=== PATIENT | female | born 1985 | race Caucasian/White ===

== ENCOUNTER 2017-10-07 20:00 | Emergency (ER) | payer BC ==
[2017-10-07 21:14] LABS: APPEARANCE,URINE CLEAR; BILIRUBIN,URINE NEGATIVE (NEGATIVE); COLOR,URINE YELLOW; GLUCOSE, URINE NEGATIVE (NEGATIVE); KETONES,URINE NEGATIVE (NEGATIVE); LEUKOCYTE ESTERASE,URINE NEGATIVE (NEGATIVE); NITRITE,URINE NEGATIVE (NEGATIVE); PROTEIN,URINE NEGATIVE (NEGATIVE); UROBILINOGEN,URINE NEGATIVE mg/dL (<2.0)
[2017-10-07] MEDS ORDERED: DIAZEPAM INJ 10 MG/2 ML DISP.SYRIN IM ONE (22:22)
--- NOTE | 2017-10-07 22:27 | ER Document Report ---
ED General - General Chief Complaint: Urinary Problem Stated Complaint: BACK PAIN Time Seen by Provider: 10/07/17 22:12 Notes: Patient is a 31-year-old female comes emergency department for chief complaint of flank pain on both sides, she states that earlier today she tried to urinate and could not, she has urinated since. She denies dysuria, abdominal pain, nausea or vomiting, fever or chills. She denies injury to her back. She states she thinks she has a urinary tract infection. She states that symptoms of pain started 2-3 days ago, symptoms started just after she recovered from a gastroenteritis where she had vomiting and diarrhea. She has had a tubal ligation, appendectomy, cholecystectomy, has hypertension and GERD. TRAVEL OUTSIDE OF THE [place] IN LAST 30 DAYS: No - Related Data Allergies/Adverse Reactions: No Known Allergies Allergy (Verified 01/29/16 12:01) Past Medical History - General Information source: Patient - Social History Smoking Status: Never Smoker Chew tobacco use (# tins/day): No Frequency of alcohol use: None Drug Abuse: None Lives with: Family Family History: Reviewed & Not Pertinent, Malignancy Patient has suicidal ideation: No Patient has homicidal ideation: No - Past Medical History Cardiac Medical History: Reports: Hx Hypertension Denies: Hx Coronary Artery Disease, Hx Heart Attack Pulmonary Medical History: Reports: Hx Asthma Denies: Hx Bronchitis, Hx COPD, Hx Pneumonia Neurological Medical History: Denies: Hx Cerebrovascular Accident, Hx Seizures Renal/ Medical History: Denies: Hx Peritoneal Dialysis GI Medical History: Reports: Hx Gastroesophageal Reflux Disease Musculoskeltal Medical History: Denies Hx Arthritis Past Surgical History: Reports: Hx Appendectomy, Hx Cholecystectomy, Hx Oral Surgery, Hx Tubal Ligation. Denies: Hx Hysterectomy - Immunizations Immunizations up to date: No Hx Diphtheria, Pertussis, Tetanus Vaccination: Yes Review of Systems - Review of Systems Constitutional: No symptoms reported EENT: No symptoms reported Cardiovascular: No symptoms reported Respiratory: No symptoms reported Gastrointestinal: No symptoms reported Genitourinary: See HPI Female Genitourinary: No symptoms reported Musculoskeletal: See HPI Skin: No symptoms reported Hematologic/Lymphatic: No symptoms reported Neurological/Psychological: No symptoms reported Physical Exam - Vital signs Vitals: Temp Pulse Resp BP Pulse Ox 98.2 F 96 16 140/93 H 98 10/07/17 20:23 10/07/17 20:23 10/07/17 20:23 10/07/17 20:23 10/07/17 20:23 Interpretation: Normal - General General appearance: Appears well In distress: None - Patient occasionally shifting her position on the bed, however she does not appear to be in any distress - HEENT Head: Normocephalic, Atraumatic Eyes: Normal Pupils: PERRL - Respiratory Respiratory status: No respiratory distress Chest status: Nontender Breath sounds: Normal. No: Decreased air movement, Wheezing Chest palpation: Normal - Cardiovascular Rhythm: Regular. No: Tachycardia Heart sounds: Normal auscultation, S1 appreciated, S2 appreciated Murmur: No - Abdominal Inspection: Normal Distension: No distension Bowel sounds: Normal Tenderness: Nontender. No: Tender, McBurney's point, Thao's sign, Guarding Organomegaly: No organomegaly - Back Back: Tender - Patient tender along the mid to lowerbilateral paralumbar musculature, worse on the right with rigid muscle tightness. No midline tenderness, no saddle anesthesia, moves all extremities and full range of motion , negative straight leg raise, normal distal neurovascular exam bilaterally. - Extremities General upper extremity: Normal inspection, Nontender, Normal color, Normal ROM , Normal temperature General lower extremity: Normal inspection, Nontender, Normal color, Normal ROM , Normal temperature, Normal weight bearing. No: Kavitha's sign - Neurological Neuro grossly intact: Yes Cognition: Normal Orientation: AAOx4 Ashwin Coma Scale Eye Opening: Spontaneous Ashwin Coma Scale Verbal: Oriented [place] Coma Scale Motor: Obeys Commands Ashwin Coma Scale Total: 15 Speech: Normal Motor strength normal: LUE, RUE, LLE, RLE Sensory: Normal - Psychological Associated symptoms: Normal affect, Normal mood - Skin Skin Temperature: Warm Skin Moisture: Dry Skin Color: Normal Course - Re-evaluation Re-evalutation: Urine is clean, test negative, patient denies history of IV drug abuse , no fever, no concerning abnormalities on exam, no reported neurological deficits. She states she had trouble urinating earlier but provided a urine sample without any difficulty. Very low suspicion of spinal cord compression, epidural abscess, or other emergent back abnormality. Palpable muscle pain with spasm on exam. Medicated, discussed medications, follow-up, return precautions with patient and stepmother. They state understanding and agreement. - Vital Signs Vital signs: Temp Pulse Resp BP Pulse Ox 98.1 F 82 18 122/76 100 10/07/17 23:20 10/07/17 23:20 10/07/17 23:20 10/07/17 23:20 10/07/17 23:20 Discharge - Discharge Clinical Impression: Lower back pain Qualifiers: Chronicity: acute Back pain laterality: bilateral Sciatica presence: without sciatica Qualified Code(s): M54.5 - Low back pain Condition: Stable Disposition: HOME, SELF-CARE Additional Instructions: Your urinalysis shows mild dehydration, no infection, negative , no other concerning abnormalities. Your examination and symptoms are consistent with muscle strain and spasm of your lumbar paraspinal muscles. You have begun treatment tonight, continue treatment at home with muscle relaxer and naproxen, apply heat to the area, avoid lifting and twisting, perform gentle stretches. Follow-up with primary care. Return if you worsen including vomiting, fever, abdominal pain, numbness , incontinence, or any other concerning or worsening symptoms. Prescriptions: Methocarbamol [Robaxin 750 mg Tablet] 750 mg PO Q6 #20 tablet Naproxen [Naprosyn 375 Mg Tablet] 375 mg PO BID PRN #20 tablet PRN Reason: Referrals: ARI CASEY FNP-C [Primary Care Provider] - Follow up as needed
[2017-10-07 23:21] VITALS: BP 122/76
== END 2017-10-07 23:20 | disposition home or self-care (01) ==
LOC: ER 20:00
DX: M54.5 Low back pain (principal); I10 Essential (primary) hypertension; J45.909 Unspecified asthma, uncomplicated; Z90.49 Acquired absence of other specified parts of digestive tract; Z87.19 Personal history of other diseases of the digestive system; Z98.51 Tubal ligation status
CPT/HCPCS: 99283; 96372; 81025; 81001; J3360

== ENCOUNTER 2018-07-30 07:13 | Emergency (ER) | payer BC ==
[2018-07-30 08:45] LABS: APPEARANCE,URINE SLIGHTLY-CLOUDY; BILIRUBIN,URINE NEGATIVE (NEGATIVE); COLOR,URINE YELLOW; GLUCOSE, URINE NEGATIVE (NEGATIVE); KETONES,URINE NEGATIVE (NEGATIVE); LEUKOCYTE ESTERASE,URINE NEGATIVE (NEGATIVE); NITRITE,URINE NEGATIVE (NEGATIVE); PROTEIN,URINE NEGATIVE (NEGATIVE); URINE SPECIFIC GRAVITY 1.023; UROBILINOGEN,URINE NEGATIVE mg/dL (<2.0)
--- NOTE | 2018-07-30 09:34 | ER Document Report ---
ED Medical Screen (RME) - General Chief Complaint: Urinary Problem Stated Complaint: URINARY ISSUES Time Seen by Provider: 07/30/18 09:27 Primary Care Provider: ARI CASEY FNP-C [Primary Care Provider] - Follow up as needed Notes: 32-year-old female patient reports 3-day history of generalized weakness, low back pain, and difficulty urinating. She states when she tries to urinate only small amounts of urine will come out. There is no fever. LMP was 07/14/2018, and she has had her tubes tied. Lab work, and LASHELL straight cath for residual volume will be done. I have greeted and performed a rapid initial assessment of this patient. A comprehensive ED assessment and evaluation of the patient, analysis of test results and completion of the medical decision making process will be conducted by additional ED providers. TRAVEL OUTSIDE OF THE [place] IN LAST 30 DAYS: No - Related Data Allergies/Adverse Reactions: No Known Allergies Allergy (Verified 01/29/16 12:01) Past Medical History - General Last Menstrual Period: 07-14-18 - Past Medical History Cardiac Medical History: Reports: Hx Hypertension Denies: Hx Coronary Artery Disease, Hx Heart Attack Pulmonary Medical History: Reports: Hx Asthma Denies: Hx Bronchitis, Hx COPD, Hx Pneumonia Neurological Medical History: Denies: Hx Cerebrovascular Accident, Hx Seizures Renal/ Medical History: Denies: Hx Peritoneal Dialysis GI Medical History: Reports: Hx Gastroesophageal Reflux Disease Musculoskeltal Medical History: Denies Hx Arthritis Past Surgical History: Reports: Hx Appendectomy, Hx Cholecystectomy, Hx Oral Surgery, Hx Tubal Ligation. Denies: Hx Hysterectomy - Immunizations Immunizations up to date: No Hx Diphtheria, Pertussis, Tetanus Vaccination: Yes Physical Exam - Vital signs Vitals: Temp Pulse Resp BP Pulse Ox 98.2 F 85 16 133/85 H 98 07/30/18 07:23 07/30/18 07:23 07/30/18 07:23 07/30/18 07:23 07/30/18 07:23 Course - Vital Signs Vital signs: Temp Pulse Resp BP Pulse Ox 98.2 F 85 16 133/85 H 98 07/30/18 07:23 07/30/18 07:23 07/30/18 07:23 07/30/18 07:23 07/30/18 07:23 Doctor's Discharge - Discharge Referrals: ARI CASEY, [employer] [facility] [Primary Care Provider] - Follow up as needed
[2018-07-30 10:14] LABS: ABSOLUTE MONOCYTES (AUTO) 0.4 10^3/uL (0.1-1.4); ABSOLUTE NEUT (AUTO) 4.7 10^3/uL (1.7-8.2); BASOPHILS % (AUTO) 0.7 % (0-2); EOSINOPHILS % (AUTO) 0.2 % (0-6); HEMATOCRIT 37.9 % (36.0-47.0); HEMOGLOBIN 13.2 g/dL (12.0-15.5); LYMPHOCYTES % (AUTO) 28.3 % (13-45); MEAN CORPUSCULAR HEMOGLOBIN 29.2 pg (27.0-33.4); MEAN CORPUSCULAR HGB CONC 34.8 g/dL (32.0-36.0); MEAN CORPUSCULAR VOLUME 84 fl (80-97); MONOCYTES % (AUTO) 5.3 % (3-13); PLATELET COUNT 359 10^3/uL (150-450); RED BLOOD COUNT 4.52 10^6/uL (3.72-5.28); RED CELL DISTRIBUTION WIDTH 13.2 % (11.5-14.0); SEGMENTED NEUTROPHILS % (AUTO) 65.5 % (42-78); TOTAL CELLS COUNTED % (AUTO) 100 %; WHITE BLOOD COUNT 7.2 10^3/uL (4.0-10.5)
[2018-07-30 10:24] LABS: ALANINE AMINOTRANSFERASE 22 U/L (9-52); ALBUMIN 4.8 g/dL (3.5-5.0); ALKALINE PHOSPHATASE 78 U/L (38-126); ANION GAP 10 (5-19); ASPARTATE AMINO TRANSFERASE 15 U/L (14-36); BILIRUBIN,DIRECT 0.2 mg/dL (0.0-0.4); BILIRUBIN,TOTAL 0.5 mg/dL (0.2-1.3); BLOOD UREA NITROGEN 7 mg/dL (7-20); CALCIUM 9.9 mg/dL (8.4-10.2); CARBON DIOXIDE 27 mmol/L (22-30); CHLORIDE 103 mmol/L (98-107); GLUCOSE 98 mg/dL (75-110); POTASSIUM 4.6 mmol/L (3.6-5.0); SODIUM 139.8 mmol/L (137-145); TOTAL PROTEIN 7.9 g/dL (6.3-8.2)
[2018-07-30] MEDS ORDERED: DICYCLOMINE HCL 20 MG TABLET PO ONE (10:41)
[2018-07-30] MEDS ORDERED: LIDOCAINE 5% (700 MG) TRANSDERMAL ADH..PATCH TP ONE (10:45)
--- NOTE | 2018-07-30 10:45 | ER Document Report ---
ED General - General Chief Complaint: Urinary Problem Stated Complaint: URINARY ISSUES Time Seen by Provider: 07/30/18 09:27 Primary Care Provider: ARI CASEY FNP-C [Primary Care Provider] - Follow up as needed TRAVEL OUTSIDE OF THE [place] IN LAST 30 DAYS: No - HPI Patient complains to provider of: Patient coming in for evaluation Notes: Patient coming in for back pain urinary issues was seen by the doctor in triage notes provided below 32-year-old female patient reports 3-day history of generalized weakness, low back pain, and difficulty urinating. She states when she tries to urinate only small amounts of urine will come out. There is no fever. LMP was 07/14/2018, and she has had her tubes tied. Lab work, and LASHELL straight cath for residual volume will be done. Patient coming in for evaluation for back pain urinary issues patient states back pain feels like a burning sensation. Patient also states she is having increased diarrhea patient is diarrhea ever since she had her gallbladder removed however possibly an increase in the last few days. Patient states only small volumes coming out whenever she pees. Patient denies any numbness or tingling down her legs denies any difficulty in ambulating. Patient denies any bowel or bladder incontinence. Resting comfortably upon my evaluation. Patient does endorse urinary frequency upon my evaluation - Related Data Allergies/Adverse Reactions: No Known Allergies Allergy (Verified 01/29/16 12:01) Past Medical History - General Last Menstrual Period: 07-14-18 - Social History Smoking Status: Unknown if Ever Smoked Family History: Reviewed & Not Pertinent, Malignancy Patient has suicidal ideation: No Patient has homicidal ideation: No - Past Medical History Cardiac Medical History: Reports: Hx Hypertension Denies: Hx Coronary Artery Disease, Hx Heart Attack Pulmonary Medical History: Reports: Hx Asthma Denies: Hx Bronchitis, Hx COPD, Hx Pneumonia Neurological Medical History: Denies: Hx Cerebrovascular Accident, Hx Seizures Renal/ Medical History: Denies: Hx Peritoneal Dialysis GI Medical History: Reports: Hx Gastroesophageal Reflux Disease Musculoskeletal Medical History: Denies Hx Arthritis Past Surgical History: Reports: Hx Appendectomy, Hx Cholecystectomy, Hx Oral Surgery, Hx Tubal Ligation. Denies: Hx Hysterectomy - Immunizations Immunizations up to date: No Hx Diphtheria, Pertussis, Tetanus Vaccination: Yes Review of Systems - Review of Systems Constitutional: No symptoms reported EENT: No symptoms reported Cardiovascular: No symptoms reported Respiratory: No symptoms reported Gastrointestinal: No symptoms reported Female Genitourinary: No symptoms reported Musculoskeletal: No symptoms reported Skin: No symptoms reported Hematologic/Lymphatic: No symptoms reported Neurological/Psychological: No symptoms reported Physical Exam - Vital signs Vitals: Temp Pulse Resp BP Pulse Ox 98.2 F 85 16 133/85 H 98 07/30/18 07:23 07/30/18 07:23 07/30/18 07:23 07/30/18 07:23 07/30/18 07:23 Interpretation: Normal - General General appearance: Appears well, Alert - HEENT Head: Normocephalic, Atraumatic Eyes: Normal Pupils: PERRL - Respiratory Respiratory status: No respiratory distress Chest status: Nontender Breath sounds: Normal Chest palpation: Normal - Cardiovascular Rhythm: Regular Heart sounds: Normal auscultation Murmur: No - Abdominal Inspection: Normal Distension: No distension Bowel sounds: Normal Tenderness: Nontender Organomegaly: No organomegaly - Back Back: Normal, Nontender - Extremities General upper extremity: Normal inspection, Nontender, Normal color, Normal ROM, Normal temperature General lower extremity: Normal inspection, Nontender, Normal color, Normal ROM, Normal temperature, Normal weight bearing. No: Kavitha's sign - Neurological Neuro grossly intact: Yes Cognition: Normal Orientation: AAOx4 [place] Coma Scale Eye Opening: Spontaneous Ashwin Coma Scale Verbal: Oriented Ashwin Coma Scale Motor: Obeys Commands Ashwin Coma Scale Total: 15 Speech: Normal Motor strength normal: LUE, RUE, LLE, RLE Sensory: Normal - Psychological Associated symptoms: Normal affect, Normal mood - Skin Skin Temperature: Warm Skin Moisture: Dry Skin Color: Normal Course - Re-evaluation Re-evalutation: 07/30/18 15:13 The patient presents with low back pain without signs of spinal cord compression, cauda equina syndrome, infection, aneurysm, or other serious etiology. The patient is neurologically intact. Given the extremely low risk of these diagnoses further testing and evaluation for these possibilities does not appear to be indicated at this time. The patient has been instructed to return if the symptoms worsen or change in any way. Urinalysis will be sent for culture. No signs of an acute infection at this time. Possibility the patient's back pain could be from colonic spasms will trial run of Bentyl. Patient states understanding will be discharged home - Vital Signs Vital signs: Temp Pulse Resp BP Pulse Ox 98.1 F 67 18 128/73 H 100 07/30/18 11:28 07/30/18 11:28 07/30/18 11:28 07/30/18 11:28 07/30/18 11:28 - Laboratory Result Diagrams: 07/30/18 09:35 07/30/18 09:35 Discharge - Discharge Clinical Impression: Back pain Qualifiers: Back pain location: low back pain Chronicity: acute Back pain laterality: bilateral Sciatica presence: without sciatica Qualified Code(s): M54.5 - Low aleksandar k pain Diarrhea Qualifiers: Diarrhea type: unspecified type Qualified Code(s): R19.7 - Diarrhea, unspecified Condition: Good Disposition: HOME, SELF-CARE Instructions: Diarrhea, Nonspecific ([facility]), Low Back Pain ([facility]) Additional Instructions: Your evaluation today does not show any signs of infection that would require antibiotics at this time. Some of the pain that you are having your back may be due to underlying diarrhea. I would recommend Tylenol Motrin for pain control he may try lidocaine patch as provided here in ER sHe may also use Bentyl for crampy pain. Return to the ER symptoms worsen we will send her urine for culture Prescriptions: Dicyclomine HCl [Bentyl 20 mg Tablet] 20 mg PO QID #30 tablet Referrals: ARI CASEY FNP-C [Primary Care Provider] - Follow up as needed
[2018-07-30 11:29] VITALS: BP 128/73
== END 2018-07-30 11:37 | disposition home or self-care (01) ==
LOC: ER 07:13
DX: M54.5 Low back pain (principal); R53.1 Weakness; R35.0 Frequency of micturition; R19.7 Diarrhea, unspecified; R39.89 Other symptoms and signs involving the genitourinary system; I10 Essential (primary) hypertension; J45.909 Unspecified asthma, uncomplicated; Z98.51 Tubal ligation status; Z90.49 Acquired absence of other specified parts of digestive tract
CPT/HCPCS: 99283; 36415; 85025; 80053; 81001; J3490

== ENCOUNTER 2018-12-11 14:37 | Emergency (ER) | payer BC ==
[2018-12-11 15:02] VITALS: BP 141/63
[2018-12-11] MEDS ORDERED: ACETAMINOPHEN 325 MG TABLET PO ONE (15:51)
[2018-12-11] MEDS ORDERED: DIPHENHYDRAMINE HCL 50 MG CAPSULE PO ONE (15:51)
--- NOTE | 2018-12-11 15:55 | ER Document Report ---
HPI - HPI Patient complains to provider of: Insect bites Time Seen by Provider: 12/11/18 15:47 Pain Level: 1 Context: Patient is a 32-year-old female presents to the emergency department with multiple insect bites to her lower extremities. Patient states she saw "little yellow biting flies" yesterday which "cut me up good." Patient states she took Benadryl last evening but has not taken any Benadryl today. Patient denies any use of Tylenol Motrin, denying any topical cream use. Patient states that he is. Patient is denying any respiratory distress, vomiting, diarrhea. Past medical history: Hypertension, seasonal allergies, GERD Medications: Lisinopril, loratadine, omeprazole Allergies: None - REPRODUCTIVE Reproductive: DENIES: : Past Medical History - General Information source: Patient - Social History Smoking Status: Unknown if Ever Smoked Family History: Reviewed & Not Pertinent, Malignancy - Past Medical History Cardiac Medical History: Reports: Hx Hypertension Denies: Hx Coronary Artery Disease, Hx Heart Attack Pulmonary Medical History: Reports: Hx Asthma Denies: Hx Bronchitis, Hx COPD, Hx Pneumonia Neurological Medical History: Denies: Hx Cerebrovascular Accident, Hx Seizures Renal/ Medical History: Denies: Hx Peritoneal Dialysis GI Medical History: Reports: Hx Gastroesophageal Reflux Disease Musculoskeletal Medical History: Denies Hx Arthritis Past Surgical History: Reports: Hx Appendectomy, Hx Cholecystectomy, Hx Oral Surgery, Hx Tubal Ligation. Denies: Hx Hysterectomy - Immunizations Immunizations up to date: No Hx Diphtheria, Pertussis, Tetanus Vaccination: Yes Vertical Provider Document - CONSTITUTIONAL Agree With Documented VS: Yes Notes: GENERAL: Alert, interacts well. No acute distress. HEAD: Normocephalic, atraumatic. EYES: Pupils equal, round, and reactive to light. Extraocular movements intact. ENT: Oral mucosa moist, tongue midline. NECK: Full range of motion. Supple. Trachea midline. LUNGS: Clear to auscultation bilaterally, no wheezes, rales, or rhonchi. No respiratory distress. HEART: Regular rate and rhythm. No murmur ABDOMEN: Soft, non-tender. Non-distended. Bowel sounds present in all 4 quadrants. EXTREMITIES: Moves all 4 extremities spontaneously. No edema, normal radial and dorsalis pedis pulses bilaterally. No cyanosis. BACK: no cervical, thoracic, lumbar midline tenderness. No saddle anesthesia, normal distal neurovascular exam. NEUROLOGICAL: Alert and oriented x3. Normal speech. cranial nerves II through XII grossly intact PSYCH: Normal affect, normal mood. SKIN: Warm, dry, normal turgor. Small erythematous macular papules noted bilateral lower extremities mid calf down to feet, spares the soles. - INFECTION CONTROL TRAVEL OUTSIDE OF THE [place] IN LAST 30 DAYS: No Course - Re-evaluation Re-evalutation: 12/11/18 15:53 Patient's lesions are consistent with some sort of insect bite. They are nonfluctuant, nonindurated, no active discharge. Lesions do not appear infected at this time. They are blanchable. They spare the patient's soles. I discussed use of Benadryl, anti-inflammatories, and Zova-evg-tiidoot hydrocortisone cream with patient at bedside. I have also discussed signs and symptoms of anaphylaxis. Patient stable for discharge. - Vital Signs Vital signs: Temp Pulse Resp BP Pulse Ox 98.2 F 70 18 141/63 H 99 12/11/18 15:00 12/11/18 15:00 12/11/18 15:00 12/11/18 15:00 12/11/18 15:00 Discharge - Discharge Clinical Impression: Insect bites Qualifiers: Encounter type: initial encounter Site of insect bite: foot Laterality: unspecified laterality Qualified Code(s): S90.869A - Insect bite (nonvenomous), unspecified foot, initial encounter; W57.XXXA - Bitten or stung by nonvenomous insect and other nonvenomous arthropods, initial encounter Condition: Stable Disposition: HOME, SELF-CARE Instructions: Insect Bites ([facility]) Additional Instructions: As we discussed you have been seen and treated in the emergency department for potential insight bites to your lower extremities. Please make sure you are taking 50 mg of Benadryl every 6 hours as needed for itching. Please also take [id number] Tylenol or Motrin for generalized pain. You can also buy a hydrocortisone cream for topical application. Please follow-up with your primary care provider return to the emergency room for any concerns. Referrals: ARI CASEY, CRISTIAN [Primary Care Provider] - Follow up as needed
== END 2018-12-11 16:06 | disposition home or self-care (01) ==
LOC: ER 14:37
DX: S90.869A Insect bite (nonvenomous), unspecified foot, initial encounter (principal); W57.XXXA Bitten or stung by nonvenomous insect and other nonvenomous arthropods, initial encounter; I10 Essential (primary) hypertension; K21.9 Gastro-esophageal reflux disease without esophagitis; J45.909 Unspecified asthma, uncomplicated; Z79.899 Other long term (current) drug therapy
CPT/HCPCS: 99281

== ENCOUNTER 2019-06-29 16:59 | Emergency (ER) | payer BC ==
[2019-06-29 19:58] VITALS: BP 135/84
--- NOTE | 2019-06-29 20:02 | ER Document Report ---
HPI - HPI Time Seen by Provider: 06/29/19 19:52 Pain Level: 3 Notes: 33-year-old female patient presented to the emergency department with complaints of pain to her face. Patient reports she had several moles removed today by her medical collections specialist. She states she now has pain to these areas. - CONSTITUTIONAL Constitutional: DENIES: Fever, Chills - REPRODUCTIVE Reproductive: DENIES: : Past Medical History - General Information source: Patient - Social History Smoking Status: Former Smoker Frequency of alcohol use: Rare Drug Abuse: None Family History: Reviewed & Not Pertinent, Malignancy Patient has suicidal ideation: No Patient has homicidal ideation: No - Past Medical History Cardiac Medical History: Reports: Hx Hypertension Denies: Hx Coronary Artery Disease, Hx Heart Attack Pulmonary Medical History: Reports: Hx Asthma Denies: Hx Bronchitis, Hx COPD, Hx Pneumonia Neurological Medical History: Denies: Hx Cerebrovascular Accident, Hx Seizures Renal/ Medical History: Denies: Hx Peritoneal Dialysis GI Medical History: Reports: Hx Gastroesophageal Reflux Disease Musculoskeletal Medical History: Denies Hx Arthritis Past Surgical History: Reports: Hx Appendectomy, Hx Cholecystectomy, Hx Oral Surgery, Hx Tubal Ligation. Denies: Hx Hysterectomy - Immunizations Immunizations up to date: No Hx Diphtheria, Pertussis, Tetanus Vaccination: Yes Vertical Provider Document - CONSTITUTIONAL Notes: PHYSICAL EXAMINATION: GENERAL: Well-appearing, well-nourished and in no acute distress. HEAD: Atraumatic, normocephalic. EYES: Pupils equal round extraocular movements intact, conjunctiva are normal. ENT: Nares patent NECK: Normal range of motion LUNGS: No respiratory distress Musculoskeletal: Normal range of motion NEUROLOGICAL: Normal speech, normal gait. PSYCH: Normal mood, normal affect. SKIN: Slight erythema surrounding areas where moles were removed. No obvious infectious process noted. - INFECTION CONTROL TRAVEL OUTSIDE OF THE [place] IN LAST 30 DAYS: No Course - Re-evaluation Re-evalutation: We will prescribe patient some pain medication and also start her on cephalexin. She was encouraged to follow back up with her medical collections specialist at her earliest convenience. - Vital Signs Vital signs: Temp Pulse Resp BP Pulse Ox 98.7 F 91 17 135/84 H 98 06/29/19 19:57 06/29/19 19:57 06/29/19 19:57 06/29/19 19:57 12/26/19 19:57 Discharge - Discharge Clinical Impression: Skin irritation Condition: Stable Disposition: HOME, SELF-CARE Additional Instructions: Please take medications as prescribed. Call your medical collections specialist in the morning and let them know you had to come to the emergency department for pain medications. Let them know we are also starting you on an antibiotic as a pre caution. Prescriptions: Cephalexin [Cephalexin 500 MG Tablet] 1 tab PO BID #14 tablet Hydrocodone/Acetaminophen [[place] 5-325 mg Tablet] 1 tab PO Q4H #12 tablet Referrals: CRISTI TAPIA PA-C [Primary Care Provider] - Follow up as needed
== END 2019-06-29 20:00 | disposition home or self-care (01) ==
LOC: ER 16:59
DX: L30.9 Dermatitis, unspecified (principal); R51 Headache; I10 Essential (primary) hypertension; Z90.49 Acquired absence of other specified parts of digestive tract; Z98.51 Tubal ligation status
CPT/HCPCS: 99283

== ENCOUNTER 2019-11-27 16:46 | Emergency (ER) | payer BC ==
--- NOTE | 2019-11-27 17:33 | ER Document Report ---
ED General - General Chief Complaint: Shortness Of Breath Stated Complaint: SHORTNESS OF BREATH Time Seen by Provider: 11/27/19 17:14 Primary Care Provider: CRITSI TAPIA PA-C [Primary Care Provider] - Follow up as needed Mode of Arrival: Ambulatory Information source: Patient Notes: 33-year-old female past medical history significant for anxiety, asthma, hypert ension presents to the emergency room complaining of increased anxiety, decreased appetite, abdominal cramping that started 2 days ago. She denies any suicidal or homicidal ideation. States she is drinking plenty of fluids denies nausea, vomiting, no diarrhea. States she just found out that her boyfriend tested positive for COVID 19 on and is currently hospitalized in [place]. Patient states she has not had any physical contact with him in over 2 weeks. She was concerned about the possibilities of developing COVID-19. She denies fevers, she denies shortness of breath, she denies any loss of taste or smell. She denies any recent travel. TRAVEL OUTSIDE OF THE [place] IN LAST 30 DAYS: No - Related Data Allergies/Adverse Reactions: No Known Allergies Allergy (Verified 06/29/19 19:46) Past Medical History - General Information source: Patient - Social History Smoking Status: Current Every Day Smoker Frequency of alcohol use: None Drug Abuse: None Lives with: Family Family History: Reviewed & Not Pertinent, Malignancy Patient has homicidal ideation: No - Past Medical History Cardiac Medical History: Reports: Hx Hypertension Denies: Hx Coronary Artery Disease, Hx Heart Attack Pulmonary Medical History: Reports: Hx Asthma Denies: Hx Bronchitis, Hx COPD, Hx Pneumonia Neurological Medical History: Denies: Hx Cerebrovascular Accident, Hx Seizures Renal/ Medical History: Denies: Hx Peritoneal Dialysis GI Medical History: Reports: Hx Gastroesophageal Reflux Disease Musculoskeletal Medical History: Denies Hx Arthritis Past Surgical History: Reports: Hx Appendectomy, Hx Cholecystectomy, Hx Genitourinary Surgery, Hx Oral Surgery, Hx Tubal Ligation. Denies: Hx Hysterectomy - Immunizations Immunizations up to date: No Hx Diphtheria, Pertussis, Tetanus Vaccination: Yes Review of Systems - Review of Systems Constitutional: No symptoms reported EENT: No symptoms reported Cardiovascular: No symptoms reported Respiratory: No symptoms reported Gastrointestinal: Abdominal pain, Poor appetite. denies: Poor fluid intake Genitourinary: No symptoms reported Musculoskeletal: No symptoms reported Skin: No symptoms reported Neurological/Psychological: Anxiety -: Yes All other systems reviewed and negative Physical Exam - Vital signs Vitals: Temp Pulse Resp BP Pulse Ox 98.4 F 108 H 20 125/82 98 11/27/19 16:47 11/27/19 16:47 11/27/19 16:47 11/27/19 16:47 11/27/19 16:47 - General General appearance: Appears well, Alert In distress: Mild - Respiratory Respiratory status: No respiratory distress Chest status: Nontender Breath sounds: Normal Chest palpation: Normal - Cardiovascular Rhythm: Tachycardia Heart sounds: Normal auscultation Murmur: No - Abdominal Inspection: Normal Distension: No distension Bowel sounds: Normal Tenderness: Nontender. No: Guarding, Rebound Organomegaly: No organomegaly - Back Back: Normal. No: CVA tenderness - Neurological Neuro grossly intact: Yes Cognition: Normal Orientation: AAOx4 [place] Coma Scale Eye Opening: Spontaneous [place] Coma Scale Verbal: Oriented [place] Coma Scale Motor: Obeys Commands [place] Coma Scale Total: 15 Speech: Normal Motor strength normal: LUE, RUE, LLE, RLE Sensory: Normal - Psychological Associated symptoms: Normal affect, Normal mood, Anxious, Decreased appetite, Depressed. No: Auditory hallucinations, Excessive sleeping, Flat affect, Manic, Paranoid - Skin Skin Temperature: Warm Skin Moisture: Dry Skin Color: Normal Course - Re-evaluation Re-evalutation: 11/27/19 18:50 Patient is resting comfortably states she is feeling better feeling less anxi ous. Reviewed lab results with patient. Offered COVID-19 testing. Patient stated she did not want to get tested at this point as her last exposure to her boyfriend was over 2 weeks ago. Will call her primary care doctor tomorrow to try to get an appointment to discuss her anxiety and treatment options. Patient was given strict return to the emergency room guidelines. Return for any new or worsening symptoms. All questions were answered. Patient verbalized understanding and agrees with plan of care. - Vital Signs Vital signs: Temp Pulse Resp BP Pulse Ox 98.4 F 108 H 20 125/82 98 11/27/19 16:47 11/27/19 16:47 11/27/19 16:47 11/27/19 16:47 11/27/19 16:47 - Laboratory Result Diagrams: 11/27/19 17:38 05/25/20 17:38 Laboratory results interpreted by me: 11/27/19 11/27/19 11/27/19 17:38 17:38 17:38 WBC 13.7 H Absolute Neuts (auto) 10.6 H Sodium 136.2 L Urine Ketones TRACE H Ur Leukocyte Esterase TRACE H Discharge - Discharge Clinical Impression: Anxiety, Abdominal cramping, Decreased appetite, Close exposure to COVID-19 virus Condition: Stable Disposition: HOME, SELF-CARE Instructions: Anxiety ([facility]), Gastroenteritis (adult) ([facility]) Additional Instructions: You were seen today for a panic/anxiety attack. Please return if you develop reoccurrence of your symptoms, thoughts of wanting to harm yourself, or any other symptoms that are concerning to you. Follow-up with your primary doctor or mental health provider regarding today's ED visit. Encourage fluids, bland diet. Return for any new or worsening symptoms. Referrals: CRISTI TAPIA PA-C [Primary Care Provider] - Follow up tomorrow (Call your primary care physician tomorrow for an outpatient follow-up appointment.)
[2019-11-27 18:03] LABS: APPEARANCE,URINE SLIGHTLY-CLOUDY; BILIRUBIN,URINE NEGATIVE (NEGATIVE); COLOR,URINE YELLOW; GLUCOSE, URINE NEGATIVE (NEGATIVE); KETONES,URINE TRACE mg/dL (NEGATIVE); LEUKOCYTE ESTERASE,URINE TRACE (NEGATIVE); NITRITE,URINE NEGATIVE (NEGATIVE); PROTEIN,URINE NEGATIVE (NEGATIVE); URINE SPECIFIC GRAVITY 1.018; UROBILINOGEN,URINE NEGATIVE mg/dL (<2.0)
[2019-11-27 18:07] LABS: ABSOLUTE BASOPHILS # (AUTO) 0.1 10^3/uL (0.0-0.2); ABSOLUTE LYMPHOCYTES (AUTO) 2.4 10^3/uL (0.5-4.7); ABSOLUTE MONOCYTES (AUTO) 0.6 10^3/uL (0.1-1.4); ABSOLUTE NEUT (AUTO) 10.6 10^3/uL (1.7-8.2); BASOPHILS % (AUTO) 0.4 % (0-2); EOSINOPHILS % (AUTO) 0.2 % (0-6); HEMATOCRIT 39.1 % (36.0-47.0); HEMOGLOBIN 13.4 g/dL (12.0-15.5); LYMPHOCYTES % (AUTO) 17.4 % (13-45); MEAN CORPUSCULAR HEMOGLOBIN 28.6 pg (27.0-33.4); MEAN CORPUSCULAR HGB CONC 34.2 g/dL (32.0-36.0); MEAN CORPUSCULAR VOLUME 83 fl (80-97); MONOCYTES % (AUTO) 4.4 % (3-13); PLATELET COUNT 413 10^3/uL (150-450); RED BLOOD COUNT 4.69 10^6/uL (3.72-5.28); SEGMENTED NEUTROPHILS % (AUTO) 77.6 % (42-78); TOTAL CELLS COUNTED % (AUTO) 100 %; WHITE BLOOD COUNT 13.7 10^3/uL (4.0-10.5)
[2019-11-27] MEDS ORDERED: ALPRAZOLAM 0.25 MG TABLET PO ONE (18:09)
[2019-11-27 18:18] LABS: ALBUMIN 4.6 g/dL (3.5-5.0); ALKALINE PHOSPHATASE 78 U/L (38-126); ANION GAP 10 (5-19); ASPARTATE AMINO TRANSFERASE 15 U/L (14-36); BILIRUBIN,TOTAL 0.5 mg/dL (0.2-1.3); BLOOD UREA NITROGEN 10 mg/dL (7-20); CARBON DIOXIDE 27 mmol/L (22-30); CHLORIDE 99 mmol/L (98-107); GLUCOSE 108 mg/dL (75-110); POTASSIUM 3.9 mmol/L (3.6-5.0); TOTAL PROTEIN 8.1 g/dL (6.3-8.2)
[2019-11-27 19:09] VITALS: BP 122/84
== END 2019-11-27 19:09 | disposition home or self-care (01) ==
LOC: ER 16:46
DX: F41.9 Anxiety disorder, unspecified (principal); R63.0 Anorexia; R10.9 Unspecified abdominal pain; R00.0 Tachycardia, unspecified; J45.909 Unspecified asthma, uncomplicated; I10 Essential (primary) hypertension; F17.200 Nicotine dependence, unspecified, uncomplicated; Z20.828 Contact with and (suspected) exposure to other viral communicable diseases
CPT/HCPCS: 36415; 80053; 81001; 81025; 85025; 99283